=== PATIENT | male | born 1990 | race Hispanic/Latino ===

== ENCOUNTER 2018-03-29 10:52 | Emergency (ER) | payer BC ==
[~2018-03-29] VITALS: Ht 170.2 cm; Wt 59.0 kg
[2018-03-29] MEDS ORDERED: PENICILLIN G BENZATHINE LA 1.2 MU TBX IM STA (11:24)
[2018-03-29] MEDS ORDERED: HYDROCODONE/APAP 5MG-325MG TAB PO NR (11:30)
[2018-03-29 12:08] VITALS: BP 122/68
== END 2018-03-29 12:09 | disposition home or self-care (01) ==
LOC: FSED 10:52
DX: J02.0 Streptococcal pharyngitis (principal)
CPT/HCPCS: 99282; J0561